=== PATIENT | female | born 1940 | race Caucasian/White ===

== ENCOUNTER 2016-11-07 13:19 | Inpatient (IN) | payer MEDICARE ==
[~2016-11-07] VITALS: Ht 162.6 cm; Wt 97.6 kg
[2016-11-07] MEDS ORDERED: HYDR-4106 PO (13:28)
[2016-11-07] MEDS ORDERED: BLOOD PRESSURE PO (13:28)
[2016-11-07 13:51] LABS: EOSINOPHILS % (AUTO) 2.5 % (1.0-6.0); HEMATOCRIT 30.3 % (36-46); HEMOGLOBIN 9.5 g/dL (12.0-16.0); LYMPHOCYTES # (AUTO) 1.4 K/uL (1.0-4.8); LYMPHOCYTES % (AUTO) 26.5 % (22.0-44.0); MEAN CORPUSCULAR HEMOGLOBIN 24.2 pg (26.0-34.0); MEAN CORPUSCULAR HGB CONC 31.3 G/dL (31.0-37.0); MEAN CORPUSCULAR VOLUME 77 fL (80-100); MONOCYTES # (AUTO) 0.7 K/uL (0.1-1.0); MONOCYTES % (AUTO) 12.4 % (2.0-9.0); NEUTROPHILS # (AUTO) 3.1 K/uL (1.8-7.7); NEUTROPHILS % (AUTO) 57.6 % (40.0-70.0); PLATELET COUNT (AUTO) 398 K/uL (150-450); RED BLOOD CELL COUNT(AUTO) 3.92 MIL/uL (4.00-5.20); RED CELL DISTRIBUTION WIDTH 16.8 % (11.5-14.5); WHITE BLOOD COUNT (AUTO) 5.4 K/uL (4.5-11.0)
[2016-11-07 14:09] LABS: RBC MORPHOLOGY COMMENT ABNORMAL RBC MORPH
[2016-11-07 14:13] LABS: B-TYPE NATRIURETIC PEPTIDE 298 pg/mL (0-100)
[2016-11-07 14:56] LABS: CHLORIDE 104 mmol/L (98-107); SODIUM SERUM 140 mmol/L (136-145)
[2016-11-07 14:57] LABS: ALANINE AMINOTRANSFERASE 13 U/L (12-78); ALBUMIN 3.3 g/dL (3.4-5.0); ANION GAP 10 mmol/L (8-16); ASPARTATE AMINOTRANSFERASE 16 U/L (15-37); BILIRUBIN,TOTAL 0.1 mg/dL (0.1-1.0); CALCIUM, TOTAL 8.7 mg/dL (8.8-10.5); CARBON DIOXIDE 26 mmol/L (22-29); CREATINE KINASE MB 0.6 ng/mL (0-5); CREATINE KINASE, TOTAL 31 U/L (26-192); CREATININE 1.06 mg/dL (0.60-1.30); GLOMERULAR FILTR. RATE CALC 51 mL/min (>60); TOTAL PROTEIN, SERUM 6.3 g/dL (6.4-8.2); UREA NITROGEN, BLOOD 18 mg/dL (7-18)
[2016-11-07] MEDS ORDERED: ASPIRIN 325 MG TABLET PO ONE (15:15)
[2016-11-07] MEDS ORDERED: MORPHINE SULFATE 4 MG/ML SYRINGE IVP ONE (16:00)
[2016-11-07] MEDS ORDERED: HYDROCODONE/ACETAMINOPHEN 5-325 MG TABLET PO PRN (16:15)
[2016-11-07] MEDS ORDERED: ACETAMINOPHEN 325 MG TABLET PO PRN ×2 (16:15→20:15)
[2016-11-07] MEDS ORDERED: ONDANSETRON HCL 4 MG/2 ML VIAL IVP PRN (16:15)
[2016-11-07] MEDS ORDERED: MORPHINE SULFATE 4 MG/ML SYRINGE IVP PRN (16:15)
[2016-11-07 16:43] VITALS: BP 206/159
[2016-11-07] MEDS ORDERED: AmLODIPine BESYLATE 5 MG TABLET PO SCH (17:00)
[2016-11-07] MEDS ORDERED: LOSARTAN POTASSIUM 25 MG TABLET PO SCH (17:00)
[2016-11-07] MEDS: CloNIDine HCL 0.1 MG TABLET PO PRN (17:05)
[2016-11-07 17:34] VITALS: BP 188/69
[2016-11-07 19:11] VITALS: BP 145/63
[2016-11-07] MEDS ORDERED: MAGNESIUM HYDROXIDE SUSPENSION 30 ML UDCUP PO PRN (20:15)
[2016-11-07] MEDS ORDERED: ALBUTEROL SULFATE 2.5 MG/0.5 ML NEB SOLUTION NEB PRN (20:15)
[2016-11-07] MEDS: DOCUSATE SODIUM 100 MG CAPSULE PO SCH (20:29)
[2016-11-07 22:41] VITALS: BP 150/75
[2016-11-08 04:17] VITALS: BP 168/77
[2016-11-08 07:20] VITALS: BP 161/75
[2016-11-08] MEDS: HEPARIN SODIUM,PORCINE 5,000 UNITS/ML VIAL SQ SCH ×3 (08:05→16:06)
[2016-11-08] MEDS: ASPIRIN 81 MG CHEWABLE TABLET PO SCH (08:06)
[2016-11-08] MEDS: DOCUSATE SODIUM 100 MG CAPSULE PO SCH ×3 (08:06→20:46)
[2016-11-08] MEDS: LOSARTAN POTASSIUM 50 MG TABLET PO SCH (08:06)
[2016-11-08] MEDS: AmLODIPine BESYLATE 10 MG TABLET PO SCH (08:06)
[2016-11-08] MEDS ORDERED: ONDANSETRON HCL 4 MG/2 ML VIAL IM PRN (11:15)
[2016-11-08] MEDS: HYDROCODONE/ACETAMINOPHEN 5-325 MG TABLET PO PRN ×2 (11:55→17:35)
[2016-11-08] MEDS ORDERED: ONDANSETRON HCL 4 MG/2 ML VIAL IVP PRN (12:15)
[2016-11-08 15:43] VITALS: BP 183/94
[2016-11-08] MEDS: CloNIDine HCL 0.1 MG TABLET PO PRN (15:57)
[2016-11-08 17:38] VITALS: BP 159/73
[2016-11-08 19:48] VITALS: BP 155/81
[2016-11-08] MEDS ORDERED: SIMVASTATIN 20 MG TABLET PO SCH (21:00)
[2016-11-08 23:59] VITALS: BP 172/70
[2016-11-09] MEDS: HYDROCODONE/ACETAMINOPHEN 5-325 MG TABLET PO PRN ×3 (00:05→09:37)
[2016-11-09] MEDS: HEPARIN SODIUM,PORCINE 5,000 UNITS/ML VIAL SQ SCH ×2 (00:06→08:22)
[2016-11-09] MEDS: CloNIDine HCL 0.1 MG TABLET PO PRN ×2 (04:39→12:06)
[2016-11-09 05:02] VITALS: BP 189/73
[2016-11-09 07:43] VITALS: BP 174/73
[2016-11-09] MEDS: DOCUSATE SODIUM 100 MG CAPSULE PO SCH (08:22)
[2016-11-09] MEDS: LOSARTAN POTASSIUM 50 MG TABLET PO SCH (08:22)
[2016-11-09] MEDS: AmLODIPine BESYLATE 10 MG TABLET PO SCH (08:22)
[2016-11-09] MEDS: ASPIRIN 81 MG CHEWABLE TABLET PO SCH (08:22)
[2016-11-09 11:38] VITALS: BP 177/70
[2016-11-09] MEDS ORDERED: AmLODIPine BESYLATE 10 MG TABLET PO SCH (12:00)
[2016-11-09] MEDS ORDERED: LOSA50TA2 PO (13:52)
[2016-11-09] MEDS ORDERED: SIMV-260 PO (13:52)
[2016-11-09] MEDS ORDERED: ASPI81 PO (13:52)
[2016-11-09] MEDS ORDERED: AMLO10TA55 PO (13:52)
== END 2016-11-09 16:20 | disposition home or self-care (01) | DRG 69 ==
LOC: EMS 13:22 → 5S 15:35
PROVIDERS: ADMIT Internal Medicine; ATTEND Internal Medicine
DX: G45.9 Transient cerebral ischemic attack, unspecified (principal); E44.1 Mild protein-calorie malnutrition; I10 Essential (primary) hypertension; R51 Headache; E78.00 Pure hypercholesterolemia, unspecified; I25.10 Atherosclerotic heart disease of native coronary artery without angina pectoris; D64.9 Anemia, unspecified; Z68.36 Body mass index [BMI] 36.0-36.9, adult; Z79.899 Other long term (current) drug therapy; Z98.890 Other specified postprocedural states; Z95.5 Presence of coronary angioplasty implant and graft
CPT/HCPCS: 70450; 70551; 93005; 93306; 93880; 96374; 99291; J1644; J2270; J2405